=== PATIENT | male | born 1980 | race African-American/Black ===

== ENCOUNTER 2017-01-09 08:27 | Emergency (ER) | payer MEDICAID ==
[2017-01-09 10:31] VITALS: BP 156/99
== END 2017-01-09 10:31 | disposition home or self-care (01) ==
LOC: ED 08:27
DX: S39.012A Strain of muscle, fascia and tendon of lower back, initial encounter (principal); I10 Essential (primary) hypertension; X58.XXXA Exposure to other specified factors, initial encounter; Y93.89 Activity, other specified; Y99.8 Other external cause status; Y92.89 Other specified places as the place of occurrence of the external cause
CPT/HCPCS: J1885; J3010; Q0162

== ENCOUNTER 2017-12-29 14:52 | Emergency (ER) | payer SELFPAY ==
[~2017-12-29] VITALS: Ht 175.3 cm; Wt 69.8 kg
[2017-12-29 14:54] VITALS: Ht 175.3 cm; Wt 69.8 kg
[2017-12-29 16:55] VITALS: BP 137/77
== END 2017-12-29 16:55 | disposition home or self-care (01) ==
LOC: ED 14:52
DX: S61.432A Puncture wound without foreign body of left hand, initial encounter (principal); W45.8XXA Other foreign body or object entering through skin, initial encounter; Y93.89 Activity, other specified; Y92.89 Other specified places as the place of occurrence of the external cause; Y99.8 Other external cause status